=== PATIENT | female | born 1940 | race Caucasian/White ===

== ENCOUNTER 2021-07-12 09:51 | Inpatient (IN) ==
[2021-07-12] MEDS ORDERED: ALBUTEROL/IPRATROPIUM 3 ML NEB RESP TX STA (10:17)
[2021-07-12 10:54] LABS: Basophils % 0.3 % (0.0-0.8); Eosinophils # 0.1 10*3/uL (0.0-0.87); Eosinophils % 0.8 % (0.00-10.9); Hemoglobin 12.5 GM/DL (12.0-16.0); Immature Granulocytes % 0.6 %; Immature Granulocytes Absolute 0.07 #; Lymphocytes # 1.2 10*3/uL (1.4-4.0); Lymphocytes % 10.6 % (21.3-54.2); Mean Corpuscular HGB Conc 31.3 GM/DL (32-36); Mean Corpuscular Volume 97.1 FL (87-102); Mean Platelet Volume 12.2 FL (9.6-12.0); Neutrophils % 77.7 % (38.7-73.9); Platelet Count 205 T/CUMM (130-400); Red Blood Count 4.12 MC/CUMM (3.8-5.5); Red Cell Distribution Width 13.5 % (9.3-17.3)
[2021-07-12 10:58] LABS: PT Patient Result 11.7 SECS (10.5-12.0); Partial Thromboplastin Time 30.7 SECS (23.8-32.1)
[2021-07-12 11:15] LABS: Albumin 2.7 G/DL (3.4-5.0); Bilirubin,Total 0.4 MG/DL (0.20-1.00); Calcium 9.5 MG/DL (8.5-10.1); Osmolality,Calculated 291.8 MOS/KG (273-304); Potassium 3.2 MMOL/L (3.5-5.1); Total Protein 6.2 G/DL (6.4-8.2)
[2021-07-12] MEDS ORDERED: methylPREDNISolone SOD SUC 125 MG/2 ML VIAL IV STA (13:03)
[2021-07-12] MEDS ORDERED: ONDANSETRON 4 MG/2 ML VIAL IV PRN (14:17)
[2021-07-12] MEDS ORDERED: hydrALAZINE 20 MG/1 ML VIAL IV PRN (14:17)
[2021-07-12] MEDS ORDERED: DEXTROSE 10% 250 ML BAG IV PRN (14:17)
[2021-07-12] MEDS ORDERED: ACETAMINOPHEN 325 MG TABLET PO PRN (14:17)
[2021-07-12] MEDS ORDERED: GLUCAGON 1 MG VIAL IM PRN (14:17)
[2021-07-12] MEDS ORDERED: POTASSIUM CHLORIDE 20 MEQ TABLET PO ONE (14:17)
[2021-07-12 15:49] LABS: Risk Ratio 3.97; Thyroid Stimulating Hormone 0.727 uIU/ml (0.358-3.74); VLDL Cholesterol 13.4 MG/DL
[2021-07-12] MEDS: ALBUTEROL/IPRATROPIUM 3 ML NEB RESP TX SCH (20:02)
[2021-07-12] MEDS ORDERED: POTASSIUM CHLORIDE 20 MEQ TABLET PO SCH (21:00)
[2021-07-12] MEDS: FERROUS SULFATE 325 MG TABLET PO SCH (21:20)
[2021-07-12] MEDS: GABAPENTIN 300 MG CAPSULE PO SCH (21:20)
[2021-07-12] MEDS: LEVOFLOXACIN 750 MG TABLET PO SCH (21:20)
[2021-07-12] MEDS: APIXABAN 5 MG TABLET PO SCH (21:20)
[2021-07-12] MEDS: METOPROLOL TARTRATE 50 MG TABLET PO SCH (21:21)
[2021-07-13] MEDS: ALBUTEROL/IPRATROPIUM 3 ML NEB RESP TX SCH ×2 (00:37→07:15)
[2021-07-13 02:55] LABS: Basophils % 0.1 % (0.0-0.8); Hematocrit 37.2 VOL% (35.7-47.0); Hemoglobin 11.8 GM/DL (12.0-16.0); Immature Granulocytes % 0.7 %; Immature Granulocytes Absolute 0.05 #; Lymphocytes # 0.5 10*3/uL (1.4-4.0); Lymphocytes % 7.2 % (21.3-54.2); Mean Corpuscular HGB Conc 31.7 GM/DL (32-36); Mean Corpuscular Volume 97.4 FL (87-102); Mean Platelet Volume 12.5 FL (9.6-12.0); Monocytes % 2.4 % (1.7-12.7); Neutrophils % 89.6 % (38.7-73.9); Platelet Count 193 T/CUMM (130-400); Red Blood Count 3.82 MC/CUMM (3.8-5.5); Red Cell Distribution Width 13.4 % (9.3-17.3); White Blood Count 7.5 T/CUMM (4-12)
[2021-07-13 03:10] LABS: Calcium 8.8 MG/DL (8.5-10.1); Osmolality,Calculated 302.3 MOS/KG (273-304); Potassium 3.4 MMOL/L (3.5-5.1)
[2021-07-13] MEDS ORDERED: FUROSEMIDE 20 MG TABLET PO SCH (08:00)
[2021-07-13] MEDS ORDERED: [UNRECOGNIZED DRUG - OTHER] INH SCH (09:00)
[2021-07-13] MEDS ORDERED: FLUTICASONE PROPIONATE INH SCH (09:00)
[2021-07-13] MEDS: APIXABAN 5 MG TABLET PO SCH ×2 (09:18→20:49)
[2021-07-13] MEDS: GABAPENTIN 300 MG CAPSULE PO SCH ×2 (09:18→20:49)
[2021-07-13] MEDS: FERROUS SULFATE 325 MG TABLET PO SCH ×2 (09:18→20:49)
[2021-07-13] MEDS: PANTOPRAZOLE 40 MG TABLET PO SCH (09:19)
[2021-07-13] MEDS: predniSONE 20 MG TABLET PO SCH (09:19)
[2021-07-13] MEDS: METOPROLOL TARTRATE 50 MG TABLET PO SCH ×2 (09:19→20:49)
[2021-07-13] MEDS: ASPIRIN EC 81 MG TABLET PO SCH (09:19)
[2021-07-13] MEDS: MONTELUKAST 10 MG TABLET PO SCH (09:24)
[2021-07-13] MEDS ORDERED: POTASSIUM CHLORIDE 20 MEQ TABLET PO ONE (11:12)
[2021-07-13] MEDS ORDERED: LEVALBUTEROL 1.25 MG/3 ML NEB RESP TX PRN (11:14)
[2021-07-13] MEDS: LEVOTHYROXINE 50 MCG TABLET PO SCH (11:34)
[2021-07-13] MEDS: FUROSEMIDE 40 MG/4 ML VIAL IV SCH (16:59)
[2021-07-13] MEDS: POTASSIUM CHLORIDE 20 MEQ TABLET PO SCH (20:49)
[2021-07-14] MEDS: LEVOTHYROXINE 50 MCG TABLET PO SCH ×2 (05:23→06:06)
[2021-07-14] MEDS ORDERED: FLUTICASONE 110 MCG/PUFF INHALER 12 GM INH SCH (09:00)
[2021-07-14] MEDS: ASPIRIN EC 81 MG TABLET PO SCH (09:48)
[2021-07-14] MEDS: GABAPENTIN 300 MG CAPSULE PO SCH ×2 (09:49→21:18)
[2021-07-14] MEDS: APIXABAN 5 MG TABLET PO SCH ×2 (09:49→21:18)
[2021-07-14] MEDS: PANTOPRAZOLE 40 MG TABLET PO SCH (09:49)
[2021-07-14] MEDS: FERROUS SULFATE 325 MG TABLET PO SCH ×2 (09:49→21:20)
[2021-07-14] MEDS: POTASSIUM CHLORIDE 20 MEQ TABLET PO SCH ×2 (09:49→21:18)
[2021-07-14] MEDS: METOPROLOL TARTRATE 50 MG TABLET PO SCH ×2 (09:49→21:19)
[2021-07-14] MEDS: predniSONE 20 MG TABLET PO SCH (09:49)
[2021-07-14] MEDS: MONTELUKAST 10 MG TABLET PO SCH (09:49)
[2021-07-14] MEDS: FUROSEMIDE 40 MG/4 ML VIAL IV SCH ×2 (09:50→15:08)
[2021-07-14] MEDS ORDERED: ALBUTEROL 2.5 MG/3 ML NEB RESP TX PRN (10:00)
[2021-07-14] MEDS: POLYETHYLENE GLYCOL POWDER 17 GM PACK PO SCH (11:53)
[2021-07-14] MEDS ORDERED: POTASSIUM CHLORIDE 20 MEQ TABLET PO ONE (15:00)
[2021-07-14] MEDS: ALBUTEROL 2.5 MG/3 ML NEB RESP TX SCH ×2 (15:32→20:02)
[2021-07-14] MEDS ORDERED: LATANOPROST 0.005% OPH SOLN 2.5 ML BOTTLE BOTH EYES SCH (21:00)
[2021-07-14] MEDS ORDERED: DOCUSATE SODIUM 100 MG CAPSULE PO SCH (21:00)
[2021-07-14] MEDS: LEVOFLOXACIN 750 MG TABLET PO SCH (21:18)
[2021-07-15] MEDS: LEVOTHYROXINE 50 MCG TABLET PO SCH (05:33)
[2021-07-15] MEDS: ALBUTEROL 2.5 MG/3 ML NEB RESP TX SCH (07:26)
[2021-07-15 07:59] VITALS: BP 135/62
[2021-07-15 08:16] LABS: Basophils % 0.2 % (0.0-0.8); Eosinophils % 0.4 % (0.00-10.9); Hemoglobin 13.1 GM/DL (12.0-16.0); Immature Granulocytes % 1.5 %; Immature Granulocytes Absolute 0.13 #; Lymphocytes # 1.9 10*3/uL (1.4-4.0); Lymphocytes % 21.8 % (21.3-54.2); Mean Corpuscular HGB Conc 31.2 GM/DL (32-36); Mean Corpuscular Volume 98.1 FL (87-102); Mean Platelet Volume 11.7 FL (9.6-12.0); Monocytes % 7.5 % (1.7-12.7); Neutrophils % 68.6 % (38.7-73.9); Platelet Count 254 T/CUMM (130-400); Red Blood Count 4.28 MC/CUMM (3.8-5.5); Red Cell Distribution Width 13.7 % (9.3-17.3); White Blood Count 8.5 T/CUMM (4-12)
[2021-07-15 08:34] LABS: Calcium 9.4 MG/DL (8.5-10.1); Osmolality,Calculated 298.3 MOS/KG (273-304); Potassium 3.8 MMOL/L (3.5-5.1)
[2021-07-15] MEDS: APIXABAN 5 MG TABLET PO SCH (10:03)
[2021-07-15] MEDS: PANTOPRAZOLE 40 MG TABLET PO SCH (10:03)
[2021-07-15] MEDS: MONTELUKAST 10 MG TABLET PO SCH (10:03)
[2021-07-15] MEDS: POLYETHYLENE GLYCOL POWDER 17 GM PACK PO SCH (10:03)
[2021-07-15] MEDS: ASPIRIN EC 81 MG TABLET PO SCH (10:03)
[2021-07-15] MEDS: METOPROLOL TARTRATE 50 MG TABLET PO SCH (10:03)
[2021-07-15] MEDS: predniSONE 20 MG TABLET PO SCH (10:04)
[2021-07-15] MEDS: FERROUS SULFATE 325 MG TABLET PO SCH (10:04)
[2021-07-15] MEDS: FUROSEMIDE 40 MG/4 ML VIAL IV SCH (10:04)
[2021-07-15] MEDS: GABAPENTIN 300 MG CAPSULE PO SCH (10:04)
[2021-07-15] MEDS: POTASSIUM CHLORIDE 20 MEQ TABLET PO SCH (10:04)
== END 2021-07-15 10:48 | DRG 291 ==
LOC: EDUNIT# → EDBD → N.EDINP 09:51 → N.ED 09:51 → N.5E 07-13 07:05 → SUATTDRO 07-13 11:20
PROVIDERS: ADMIT Internal Medicine; ATTEND Internal Medicine

== ENCOUNTER 2021-08-05 03:30 | Inpatient (IN) ==
[2021-08-05 04:09] LABS: PT Patient Result 11.5 SECS (10.5-12.0); Partial Thromboplastin Time 28.6 SECS (23.8-32.1)
[2021-08-05 04:11] LABS: Alanine Aminotransferase 18 U/L (13-56); Albumin 2.8 G/DL (3.4-5.0); Alkaline Phosphatase 105 U/L (45-117); Aspartate Amino Transferase 21 U/L (0-37); Bilirubin,Total < 0.39 MG/DL (0.20-1.00); Blood Urea Nitrogen 66 MG/DL (7-18); Calcium 9.3 MG/DL (8.5-10.1); Carbon Dioxide 37 MMOL/L (21-32); Estimated Glom Filtration Rate 19 ML/MIN; Glucose 89 MG/DL (74-106); Osmolality,Calculated 290.8 MOS/KG (273-304); Potassium 3.7 MMOL/L (3.5-5.1); Sodium 137 MMOL/L (136-145); Total Protein 6.7 G/DL (6.4-8.2)
[2021-08-05 04:14] LABS: Basophils % 0.5 % (0.0-0.8); Eosinophils # 0.1 10*3/uL (0.0-0.87); Eosinophils % 2.1 % (0.00-10.9); Hematocrit 38.9 VOL% (35.7-47.0); Hemoglobin 12.5 GM/DL (12.0-16.0); Immature Granulocytes % 0.5 %; Immature Granulocytes Absolute 0.03 #; Lymphocytes # 1.5 10*3/uL (1.4-4.0); Lymphocytes % 24.5 % (21.3-54.2); Mean Corpuscular HGB Conc 32.1 GM/DL (32-36); Mean Corpuscular Volume 95.3 FL (87-102); Mean Platelet Volume 11.9 FL (9.6-12.0); Monocytes % 11.3 % (1.7-12.7); Neutrophils % 61.1 % (38.7-73.9); Platelet Count 235 T/CUMM (130-400); Red Blood Count 4.08 MC/CUMM (3.8-5.5); Red Cell Distribution Width 13.8 % (9.3-17.3); White Blood Count 6.3 T/CUMM (4-12)
[2021-08-05] MEDS ORDERED: SODIUM CHLORIDE 0.9% 500 ML IV STA (04:33)
[2021-08-05] MEDS ORDERED: LEVOFLOXACIN INJ 500 MG/100 ML PREMIX IV ONE (04:38)
[2021-08-05] MEDS ORDERED: DEXTROSE 10% 250 ML BAG IV PRN (05:15)
[2021-08-05] MEDS ORDERED: GLUCAGON 1 MG VIAL IM PRN (05:15)
[2021-08-05] MEDS ORDERED: ACETAMINOPHEN 325 MG TABLET PO PRN (05:22)
[2021-08-05] MEDS ORDERED: hydrALAZINE 20 MG/1 ML VIAL IV PRN (05:22)
[2021-08-05] MEDS ORDERED: ONDANSETRON 4 MG/2 ML VIAL IV PRN (05:22)
[2021-08-05] MEDS ORDERED: MORPHINE 4 MG/1 ML VIAL IV PRN (05:22)
[2021-08-05] MEDS ORDERED: DOXYCYCLINE HYCLATE INJ 100 MG in SODIUM CHLORIDE 0.9% 100 ML IV SCH (06:00)
[2021-08-05] MEDS: methylPREDNISolone SOD SUC 40 MG/1 ML VIAL IV SCH ×2 (06:29→17:32)
[2021-08-05] MEDS ORDERED: ALBUTEROL/IPRATROPIUM 3 ML NEB RESP TX SCH (07:00)
[2021-08-05] MEDS: PANTOPRAZOLE 40 MG TABLET PO SCH (09:00)
[2021-08-05] MEDS ORDERED: SULFAMETH/TRIMETH INJ 200 MG in DEXTROSE 5% 250 ML IV SCH (09:00)
[2021-08-05] MEDS ORDERED: ALBUTEROL 2.5 MG/3 ML NEB RESP TX PRN (09:57)
[2021-08-05] MEDS ORDERED: ALBUTEROL 2.5 MG/3 ML NEB RESP TX ONE (10:01)
[2021-08-05] MEDS ORDERED: LEVOFLOXACIN INJ 500 MG/100 ML PREMIX IV SCH (11:00)
[2021-08-05] MEDS: SODIUM CHLORIDE 0.9% 1,000 ML IV SCH (12:20)
[2021-08-05] MEDS: HEPARIN 5,000 UNIT/1 ML VIAL SUBCUT SCH (18:21)
[2021-08-05] MEDS: ALBUTEROL 2.5 MG/3 ML NEB RESP TX SCH ×2 (19:10→22:57)
[2021-08-05] MEDS: MIRTAZAPINE 15 MG TABLET PO SCH (21:28)
[2021-08-05] MEDS: MONTELUKAST 10 MG TABLET PO SCH (21:28)
[2021-08-05] MEDS: DOCUSATE SODIUM 100 MG CAPSULE PO SCH (21:28)
[2021-08-05] MEDS: LATANOPROST 0.005% OPH SOLN 2.5 ML BOTTLE BOTH EYES SCH (21:34)
[2021-08-05] MEDS: BENZONATATE 100 MG CAPSULE PO PRN (23:24)
[2021-08-06] MEDS: ALBUTEROL 2.5 MG/3 ML NEB RESP TX SCH ×6 (02:35→21:02)
[2021-08-06 06:03] LABS: Eosinophils % 0.2 % (0.00-10.9); Hematocrit 34.2 VOL% (35.7-47.0); Hemoglobin 10.8 GM/DL (12.0-16.0); Immature Granulocytes % 0.5 %; Immature Granulocytes Absolute 0.02 #; Lymphocytes # 0.7 10*3/uL (1.4-4.0); Lymphocytes % 16.5 % (21.3-54.2); Mean Corpuscular HGB Conc 31.6 GM/DL (32-36); Mean Corpuscular Volume 96.6 FL (87-102); Mean Platelet Volume 12.3 FL (9.6-12.0); Monocytes % 5.9 % (1.7-12.7); Neutrophils % 76.9 % (38.7-73.9); Platelet Count 205 T/CUMM (130-400); Red Blood Count 3.54 MC/CUMM (3.8-5.5); Red Cell Distribution Width 13.5 % (9.3-17.3); White Blood Count 4.3 T/CUMM (4-12)
[2021-08-06 06:04] LABS: Calcium 8.4 MG/DL (8.5-10.1); Osmolality,Calculated 288.2 MOS/KG (273-304); Potassium 4.3 MMOL/L (3.5-5.1)
[2021-08-06] MEDS: HEPARIN 5,000 UNIT/1 ML VIAL SUBCUT SCH (07:00)
[2021-08-06] MEDS: methylPREDNISolone SOD SUC 40 MG/1 ML VIAL IV SCH ×2 (07:01→17:56)
[2021-08-06] MEDS: LEVOTHYROXINE 50 MCG TABLET PO SCH (07:06)
[2021-08-06] MEDS ORDERED: MIRTAZAPINE 15 MG TABLET PO SCH (09:00)
[2021-08-06] MEDS: PANTOPRAZOLE 40 MG TABLET PO SCH (09:14)
[2021-08-06] MEDS: FLUTICASONE 50 MCG NASAL SPRAY 16 GM BOTTLE BOTH NARES SCH (10:16)
[2021-08-06] MEDS: POLYETHYLENE GLYCOL POWDER 17 GM PACK PO SCH (11:50)
[2021-08-06] MEDS: SODIUM CHLORIDE 0.9% 1,000 ML IV SCH (11:50)
[2021-08-06] MEDS ORDERED: INFLUENZA VIRUS VACCINE 0.5 ML SYRINGE IM ONE (14:59)
[2021-08-06] MEDS: APIXABAN 2.5 MG TABLET PO SCH (21:38)
[2021-08-06] MEDS: METOPROLOL TARTRATE 25 MG TABLET PO SCH (21:38)
[2021-08-06] MEDS: MONTELUKAST 10 MG TABLET PO SCH (21:38)
[2021-08-06] MEDS: DOCUSATE SODIUM 100 MG CAPSULE PO SCH (21:38)
[2021-08-06] MEDS: MIRTAZAPINE 15 MG TABLET PO SCH (21:39)
[2021-08-06] MEDS: LATANOPROST 0.005% OPH SOLN 2.5 ML BOTTLE BOTH EYES SCH (21:42)
[2021-08-07] MEDS: LEVOTHYROXINE 50 MCG TABLET PO SCH (05:38)
[2021-08-07] MEDS: methylPREDNISolone SOD SUC 40 MG/1 ML VIAL IV SCH ×2 (05:38→17:22)
[2021-08-07] MEDS: LEVOFLOXACIN INJ 250 MG/50 ML PREMIX IV SCH (05:39)
[2021-08-07] MEDS: ALBUTEROL 2.5 MG/3 ML NEB RESP TX SCH ×5 (07:31→21:24)
[2021-08-07] MEDS ORDERED: POLYETHYLENE GLYCOL POWDER 17 GM PACK PO SCH (09:00)
[2021-08-07] MEDS: APIXABAN 2.5 MG TABLET PO SCH ×2 (09:38→20:25)
[2021-08-07] MEDS: METOPROLOL TARTRATE 25 MG TABLET PO SCH ×2 (09:38→20:25)
[2021-08-07] MEDS: PANTOPRAZOLE 40 MG TABLET PO SCH (09:38)
[2021-08-07] MEDS: POLYETHYLENE GLYCOL POWDER 17 GM PACK PO SCH (09:39)
[2021-08-07] MEDS: ASPIRIN EC 81 MG TABLET PO SCH (13:07)
[2021-08-07] MEDS: FLUTICASONE 50 MCG NASAL SPRAY 16 GM BOTTLE BOTH NARES SCH (13:20)
[2021-08-07] MEDS: SODIUM CHLORIDE 0.9% 1,000 ML IV SCH (13:21)
[2021-08-07] MEDS: GABAPENTIN 100 MG CAPSULE PO SCH ×2 (13:33→20:25)
[2021-08-07] MEDS: MONTELUKAST 10 MG TABLET PO SCH (20:25)
[2021-08-07] MEDS: DOCUSATE SODIUM 100 MG CAPSULE PO SCH (20:25)
[2021-08-07] MEDS: LATANOPROST 0.005% OPH SOLN 2.5 ML BOTTLE BOTH EYES SCH (20:26)
[2021-08-08] MEDS: ALBUTEROL 2.5 MG/3 ML NEB RESP TX SCH ×7 (00:19→23:20)
[2021-08-08 04:56] LABS: Hematocrit 34.4 VOL% (35.7-47.0); Hemoglobin 10.6 GM/DL (12.0-16.0); Immature Granulocytes % 0.5 %; Immature Granulocytes Absolute 0.03 #; Lymphocytes # 0.9 10*3/uL (1.4-4.0); Lymphocytes % 14.7 % (21.3-54.2); Mean Corpuscular HGB Conc 30.8 GM/DL (32-36); Mean Platelet Volume 11.3 FL (9.6-12.0); Monocytes % 7.8 % (1.7-12.7); Platelet Count 227 T/CUMM (130-400); Red Blood Count 3.51 MC/CUMM (3.8-5.5); Red Cell Distribution Width 14.3 % (9.3-17.3); White Blood Count 5.9 T/CUMM (4-12)
[2021-08-08 05:20] LABS: Calcium 8.6 MG/DL (8.5-10.1); Osmolality,Calculated 298.4 MOS/KG (273-304); Potassium 3.6 MMOL/L (3.5-5.1)
[2021-08-08] MEDS: methylPREDNISolone SOD SUC 40 MG/1 ML VIAL IV SCH (05:36)
[2021-08-08] MEDS: LEVOTHYROXINE 50 MCG TABLET PO SCH (05:36)
[2021-08-08] MEDS: PANTOPRAZOLE 40 MG TABLET PO SCH (09:21)
[2021-08-08] MEDS: APIXABAN 2.5 MG TABLET PO SCH ×2 (09:21→21:30)
[2021-08-08] MEDS: GABAPENTIN 100 MG CAPSULE PO SCH ×2 (09:21→21:29)
[2021-08-08] MEDS: ASPIRIN EC 81 MG TABLET PO SCH (09:21)
[2021-08-08] MEDS: POLYETHYLENE GLYCOL POWDER 17 GM PACK PO SCH (09:21)
[2021-08-08] MEDS: METOPROLOL TARTRATE 25 MG TABLET PO SCH (09:21)
[2021-08-08] MEDS: BENZONATATE 100 MG CAPSULE PO PRN (09:25)
[2021-08-08] MEDS: FLUTICASONE 50 MCG NASAL SPRAY 16 GM BOTTLE BOTH NARES SCH (10:47)
[2021-08-08] MEDS: guaiFENesin/DM ER 600-30 MG TABLET PO SCH ×2 (15:13→21:29)
[2021-08-08] MEDS: DILTIAZEM 30 MG TABLET PO SCH ×2 (15:13→21:29)
[2021-08-08] MEDS: BUDESONIDE/FORMOTEROL 160-4.5 INHALER 6 GM INH SCH (21:28)
[2021-08-08] MEDS: MONTELUKAST 10 MG TABLET PO SCH (21:29)
[2021-08-08] MEDS: DOCUSATE SODIUM 100 MG CAPSULE PO SCH (21:29)
[2021-08-08] MEDS: MIRTAZAPINE 15 MG TABLET PO SCH (21:29)
[2021-08-08] MEDS: LATANOPROST 0.005% OPH SOLN 2.5 ML BOTTLE BOTH EYES SCH (21:30)
[2021-08-09] MEDS: ALBUTEROL 2.5 MG/3 ML NEB RESP TX SCH ×6 (03:30→19:18)
[2021-08-09] MEDS: LEVOFLOXACIN INJ 250 MG/50 ML PREMIX IV SCH (05:44)
[2021-08-09] MEDS: methylPREDNISolone SOD SUC 40 MG/1 ML VIAL IV SCH ×2 (05:45→17:15)
[2021-08-09] MEDS: LEVOTHYROXINE 50 MCG TABLET PO SCH (05:45)
[2021-08-09 06:17] LABS: Basophils % 0.3 % (0.0-0.8); Eosinophils # 0.1 10*3/uL (0.0-0.87); Hemoglobin 11.5 GM/DL (12.0-16.0); Immature Granulocytes % 0.9 %; Immature Granulocytes Absolute 0.05 #; Lymphocytes # 1.4 10*3/uL (1.4-4.0); Lymphocytes % 23.5 % (21.3-54.2); Mean Corpuscular HGB Conc 30.3 GM/DL (32-36); Mean Corpuscular Volume 100.3 FL (87-102); Mean Platelet Volume 12.3 FL (9.6-12.0); Monocytes % 12.8 % (1.7-12.7); Neutrophils % 61.5 % (38.7-73.9); Platelet Count 200 T/CUMM (130-400); Red Blood Count 3.79 MC/CUMM (3.8-5.5); Red Cell Distribution Width 14.7 % (9.3-17.3); White Blood Count 5.9 T/CUMM (4-12)
[2021-08-09 06:34] LABS: Potassium 3.3 MMOL/L (3.5-5.1)
[2021-08-09 06:44] LABS: Free T4 (Free Thyroxine) 1.05 NG/DL (0.76-1.46)
[2021-08-09] MEDS ORDERED: POTASSIUM CHLORIDE 20 MEQ TABLET PO ONE (08:00)
[2021-08-09] MEDS: GABAPENTIN 100 MG CAPSULE PO SCH ×2 (09:57→21:02)
[2021-08-09] MEDS: ASPIRIN EC 81 MG TABLET PO SCH (09:57)
[2021-08-09] MEDS: guaiFENesin/DM ER 600-30 MG TABLET PO SCH ×2 (09:57→21:02)
[2021-08-09] MEDS: MONTELUKAST 10 MG TABLET PO SCH ×2 (09:58→21:01)
[2021-08-09] MEDS: APIXABAN 2.5 MG TABLET PO SCH ×2 (09:58→21:02)
[2021-08-09] MEDS: DILTIAZEM 30 MG TABLET PO SCH ×3 (09:58→21:01)
[2021-08-09] MEDS: POLYETHYLENE GLYCOL POWDER 17 GM PACK PO SCH (09:58)
[2021-08-09] MEDS: PANTOPRAZOLE 40 MG TABLET PO SCH (09:58)
[2021-08-09] MEDS: FLUTICASONE 50 MCG NASAL SPRAY 16 GM BOTTLE BOTH NARES SCH (09:59)
[2021-08-09] MEDS: BUDESONIDE/FORMOTEROL 160-4.5 INHALER 6 GM INH SCH ×2 (09:59→21:04)
[2021-08-09] MEDS: MIRTAZAPINE 15 MG TABLET PO SCH (21:01)
[2021-08-09] MEDS: DOCUSATE SODIUM 100 MG CAPSULE PO SCH (21:02)
[2021-08-09] MEDS: LATANOPROST 0.005% OPH SOLN 2.5 ML BOTTLE BOTH EYES SCH (21:05)
[2021-08-10] MEDS: methylPREDNISolone SOD SUC 40 MG/1 ML VIAL IV SCH (05:30)
[2021-08-10] MEDS: LEVOTHYROXINE 50 MCG TABLET PO SCH (05:31)
[2021-08-10] MEDS: ALBUTEROL 2.5 MG/3 ML NEB RESP TX SCH ×3 (06:31→11:13)
[2021-08-10] MEDS: FLUTICASONE 50 MCG NASAL SPRAY 16 GM BOTTLE BOTH NARES SCH (08:53)
[2021-08-10] MEDS: DILTIAZEM 30 MG TABLET PO SCH (08:53)
[2021-08-10] MEDS: ASPIRIN EC 81 MG TABLET PO SCH (08:53)
[2021-08-10] MEDS: GABAPENTIN 100 MG CAPSULE PO SCH (08:53)
[2021-08-10] MEDS: APIXABAN 2.5 MG TABLET PO SCH (08:53)
[2021-08-10] MEDS: PANTOPRAZOLE 40 MG TABLET PO SCH (08:54)
[2021-08-10] MEDS: MONTELUKAST 10 MG TABLET PO SCH (08:54)
[2021-08-10] MEDS: guaiFENesin/DM ER 600-30 MG TABLET PO SCH (08:54)
[2021-08-10] MEDS: POLYETHYLENE GLYCOL POWDER 17 GM PACK PO SCH (08:55)
[2021-08-10] MEDS: BUDESONIDE/FORMOTEROL 160-4.5 INHALER 6 GM INH SCH (08:55)
[2021-08-10] MEDS ORDERED: POTASSIUM CHLORIDE 20 MEQ TABLET PO ONE (09:00)
[2021-08-10 11:27] VITALS: BP 131/51
== END 2021-08-10 14:14 | DRG 178 ==
LOC: N.ED 03:30 → N.EDINP 05:15 → N.3E 15:13
PROVIDERS: ADMIT Hospitalist; ATTEND Hospitalist

== ENCOUNTER 2022-03-03 12:54 | Inpatient (IN) ==
[2022-03-03] MEDS ORDERED: DILTIAZEM 25 MG/5 ML VIAL IV STA (13:25)
[2022-03-03] MEDS: DILTIAZEM INJ 100 MG in SODIUM CHLORIDE 0.9% 100 ML IV SCH (13:38)
[2022-03-03 13:39] LABS: Basophils % 0.4 % (0.0-0.8); Eosinophils # 0.1 10*3/uL (0.0-0.87); Eosinophils % 0.8 % (0.00-10.9); Hematocrit 42.9 VOL% (35.7-47.0); Hemoglobin 13.4 GM/DL (12.0-16.0); Immature Granulocytes % 0.5 %; Immature Granulocytes Absolute 0.04 #; Lymphocytes # 0.4 10*3/uL (1.4-4.0); Mean Corpuscular HGB Conc 31.2 GM/DL (32-36); Mean Platelet Volume 11.3 FL (9.6-12.0); Monocytes # 0.7 10*3/uL (0.11-0.8); Monocytes % 9.3 % (1.7-12.7); Platelet Count 243 T/CUMM (130-400); Red Blood Count 4.47 MC/CUMM (3.8-5.5); Red Cell Distribution Width 14.9 % (9.3-17.3); White Blood Count 7.9 T/CUMM (4-12)
[2022-03-03 13:51] LABS: Partial Thromboplastin Time 25.6 SECS (23.7-32.9)
[2022-03-03 14:10] LABS: Albumin 3.5 G/DL (3.4-5.0); Bilirubin,Total 0.4 MG/DL (0.20-1.00); Calcium 10.2 MG/DL (8.5-10.1); Potassium 4.7 MMOL/L (3.5-5.1); Thyroid Stimulating Hormone 0.74 uIU/ml (0.358-3.74); Total Protein 7.2 G/DL (6.4-8.2)
[2022-03-03 14:28] LABS: Barbiturates Screen,Urine Negative (Negative); Benzodiazepines Screen,Urine Negative (Negative); Cannabinoid Screen,Urine Negative (Negative); Opiate Screen,Urine Negative (Negative); Phencyclidine Screen,Urine Negative (Negative)
[2022-03-03] MEDS ORDERED: LEVOFLOXACIN INJ 750 MG/150 ML PREMIX IV STA (16:37)
[2022-03-03] MEDS ORDERED: ONDANSETRON 4 MG/2 ML VIAL IV PRN (17:15)
[2022-03-03] MEDS ORDERED: ACETAMINOPHEN 325 MG TABLET PO PRN (17:15)
[2022-03-03] MEDS ORDERED: traMADol 50 MG TABLET PO PRN (17:37)
[2022-03-03] MEDS ORDERED: NON-FORMULARY MEDICATION (Menthol [Biofreeze (Menthol)] 4 % Gel) TOP PRN (17:37)
[2022-03-03] MEDS ORDERED: FUROSEMIDE 40 MG/4 ML VIAL IV STA (17:42)
[2022-03-03 18:33] LABS: Bacteria,Urine Occasional /HPF (Few); Mucus,Urine Occasional /LPF (Occasional); RBC,Urine 1 /HPF (0-4); Squamous Epithelial Cell,Urine Occasional /HPF (0-10)
[2022-03-03 18:34] LABS: Bilirubin,Urine Negative (Negative); Blood, Urine Trace mg/dL (Negative); Glucose,Urine (UA) Negative (Negative); Ketones,Urine Negative (Negative); Nitrite,Urine Negative (Negative); Protein,Urine Negative (Negative); Urine Appearance Clear (Clear); Urine Color Yellow (Yellow); Urine Specific Gravity < 1.005 (1.001-1.035); Urine Urobilinogen 0.2 eU/dL (<2.0); Urine pH 5.5 (4.5-8.0)
[2022-03-03] MEDS: BUDESONIDE/FORMOTEROL 160-4.5 INHALER 6 GM INH SCH (21:06)
[2022-03-03] MEDS: MINERAL OIL/PETROLATUM OPH OINT 3.5 GM TUBE BOTH EYES SCH (21:06)
[2022-03-03] MEDS: MIRTAZAPINE 15 MG TABLET PO SCH (21:06)
[2022-03-03] MEDS: ALBUTEROL/IPRATROPIUM 3 ML NEB RESP TX SCH (21:07)
[2022-03-03] MEDS: LATANOPROST 0.005% OPH SOLN 2.5 ML BOTTLE BOTH EYES SCH (21:07)
[2022-03-03] MEDS: APIXABAN 2.5 MG TABLET PO SCH (21:09)
[2022-03-03] MEDS: DOCUSATE SODIUM 100 MG CAPSULE PO SCH (21:09)
[2022-03-03] MEDS: FERROUS SULFATE 325 MG TABLET PO SCH (21:09)
[2022-03-03] MEDS: DILTIAZEM 30 MG TABLET PO SCH (21:09)
[2022-03-03] MEDS: POTASSIUM CHLORIDE 20 MEQ TABLET PO SCH (21:10)
[2022-03-03] MEDS: GABAPENTIN 100 MG CAPSULE PO SCH (21:10)
[2022-03-03] MEDS: guaiFENesin/DM ER 600-30 MG TABLET PO SCH (21:10)
[2022-03-04] MEDS: ALBUTEROL/IPRATROPIUM 3 ML NEB RESP TX SCH ×4 (02:09→18:22)
[2022-03-04] MEDS: DILTIAZEM INJ 100 MG in SODIUM CHLORIDE 0.9% 100 ML IV SCH (04:00)
[2022-03-04 04:56] LABS: Basophils % 0.5 % (0.0-0.8); Eosinophils # 0.1 10*3/uL (0.0-0.87); Eosinophils % 1.8 % (0.00-10.9); Hematocrit 37.3 VOL% (35.7-47.0); Hemoglobin 11.8 GM/DL (12.0-16.0); Immature Granulocytes % 0.7 %; Immature Granulocytes Absolute 0.04 #; Lymphocytes % 18.8 % (21.3-54.2); Mean Corpuscular HGB Conc 31.6 GM/DL (32-36); Mean Corpuscular Volume 96.1 FL (87-102); Mean Platelet Volume 11.4 FL (9.6-12.0); Neutrophils % 59.2 % (38.7-73.9); Platelet Count 212 T/CUMM (130-400); Red Blood Count 3.88 MC/CUMM (3.8-5.5); Red Cell Distribution Width 14.8 % (9.3-17.3); White Blood Count 5.5 T/CUMM (4-12)
[2022-03-04 05:05] LABS: INR 1.1
[2022-03-04 05:25] LABS: Calcium 9.7 MG/DL (8.5-10.1); Potassium 3.7 MMOL/L (3.5-5.1); Risk Ratio 2.49; VLDL Cholesterol 8.6 MG/DL
[2022-03-04 05:32] LABS: Lymphocytes 18 % (20-55); Total Cells Counted 100
[2022-03-04 05:33] LABS: Microcytosis Slight; Target Cells Slight
[2022-03-04] MEDS: LEVOTHYROXINE 50 MCG TABLET PO SCH (07:22)
[2022-03-04] MEDS: MULTIVITAMIN (CENTRUM) TABLET PO SCH (08:36)
[2022-03-04] MEDS: FERROUS SULFATE 325 MG TABLET PO SCH ×2 (08:36→20:54)
[2022-03-04] MEDS: DOCUSATE SODIUM 100 MG CAPSULE PO SCH ×2 (08:36→20:54)
[2022-03-04] MEDS: MONTELUKAST 10 MG TABLET PO SCH (08:36)
[2022-03-04] MEDS: APIXABAN 2.5 MG TABLET PO SCH ×2 (08:36→20:54)
[2022-03-04] MEDS: POTASSIUM CHLORIDE 20 MEQ TABLET PO SCH ×2 (08:37→20:54)
[2022-03-04] MEDS: GABAPENTIN 100 MG CAPSULE PO SCH ×2 (08:37→20:54)
[2022-03-04] MEDS: PANTOPRAZOLE 40 MG TABLET PO SCH (08:37)
[2022-03-04] MEDS: DILTIAZEM 30 MG TABLET PO SCH (08:37)
[2022-03-04] MEDS: guaiFENesin/DM ER 600-30 MG TABLET PO SCH ×2 (08:37→20:54)
[2022-03-04] MEDS: ASPIRIN EC 81 MG TABLET PO SCH (08:37)
[2022-03-04] MEDS: FUROSEMIDE 40 MG TABLET PO SCH (08:37)
[2022-03-04] MEDS: BUDESONIDE/FORMOTEROL 160-4.5 INHALER 6 GM INH SCH ×2 (08:38→20:53)
[2022-03-04] MEDS ORDERED: [UNRECOGNIZED DRUG - MIXTURE] INH SCH (09:00)
[2022-03-04] MEDS ORDERED: NON-FORMULARY MEDICATION (Cranberry Extract-Vitamin C 250-60 mg Capsule) PO SCH (09:00)
[2022-03-04] MEDS: POLYETHYLENE GLYCOL POWDER 17 GM PACK PO SCH (09:16)
[2022-03-04] MEDS: MEROPENEM 500 MG in SODIUM CHLORIDE 0.9% 100 ML IV SCH ×2 (10:40→17:06)
[2022-03-04] MEDS ORDERED: DILTIAZEM CD 120 MG CAPSULE PO SCH (11:00)
[2022-03-04] MEDS: VANCOMYCIN INJ 1,500 MG in SODIUM CHLORIDE 0.9% 500 ML IV SCH (11:12)
[2022-03-04] MEDS: MINERAL OIL/PETROLATUM OPH OINT 3.5 GM TUBE BOTH EYES SCH (20:53)
[2022-03-04] MEDS: LATANOPROST 0.005% OPH SOLN 2.5 ML BOTTLE BOTH EYES SCH (20:53)
[2022-03-04] MEDS: MIRTAZAPINE 15 MG TABLET PO SCH (20:54)
[2022-03-05 04:45] LABS: Basophils % 0.3 % (0.0-0.8); Eosinophils # 0.1 10*3/uL (0.0-0.87); Eosinophils % 1.6 % (0.00-10.9); Hematocrit 38.8 VOL% (35.7-47.0); Immature Granulocytes % 0.7 %; Immature Granulocytes Absolute 0.04 #; Lymphocytes % 17.1 % (21.3-54.2); Mean Corpuscular HGB Conc 30.9 GM/DL (32-36); Mean Corpuscular Volume 96.8 FL (87-102); Monocytes % 17.8 % (1.7-12.7); Neutrophils % 62.5 % (38.7-73.9); Platelet Count 212 T/CUMM (130-400); Red Blood Count 4.01 MC/CUMM (3.8-5.5); Red Cell Distribution Width 14.8 % (9.3-17.3); White Blood Count 5.7 T/CUMM (4-12)
[2022-03-05 05:04] LABS: Calcium 9.8 MG/DL (8.5-10.1); Osmolality,Calculated 293.8 MOS/KG (273-304); Potassium 3.4 MMOL/L (3.5-5.1)
[2022-03-05 05:20] LABS: Eosinophils 1 % (0-10); Lymphocytes 14 % (20-55); Platelet Estimate Adequate; Total Cells Counted 100
[2022-03-05] MEDS: LEVOTHYROXINE 50 MCG TABLET PO SCH (06:52)
[2022-03-05] MEDS: MEROPENEM 500 MG in SODIUM CHLORIDE 0.9% 100 ML IV SCH ×4 (06:52→16:22)
[2022-03-05] MEDS ORDERED: POTASSIUM CHLORIDE 20 MEQ TABLET PO ONE (07:38)
[2022-03-05] MEDS: guaiFENesin/DM ER 600-30 MG TABLET PO SCH ×2 (08:16→22:14)
[2022-03-05] MEDS: BUDESONIDE/FORMOTEROL 160-4.5 INHALER 6 GM INH SCH ×2 (08:16→22:16)
[2022-03-05] MEDS: MULTIVITAMIN (CENTRUM) TABLET PO SCH (08:16)
[2022-03-05] MEDS: FUROSEMIDE 40 MG TABLET PO SCH (08:17)
[2022-03-05] MEDS: ASPIRIN EC 81 MG TABLET PO SCH (08:17)
[2022-03-05] MEDS: APIXABAN 2.5 MG TABLET PO SCH ×2 (08:17→22:14)
[2022-03-05] MEDS: PANTOPRAZOLE 40 MG TABLET PO SCH (08:17)
[2022-03-05] MEDS: FERROUS SULFATE 325 MG TABLET PO SCH ×2 (08:17→22:14)
[2022-03-05] MEDS: POTASSIUM CHLORIDE 20 MEQ TABLET PO SCH ×2 (08:17→22:14)
[2022-03-05] MEDS: MONTELUKAST 10 MG TABLET PO SCH (08:17)
[2022-03-05] MEDS: GABAPENTIN 100 MG CAPSULE PO SCH ×2 (08:18→22:14)
[2022-03-05] MEDS: DOCUSATE SODIUM 100 MG CAPSULE PO SCH ×2 (08:18→22:14)
[2022-03-05] MEDS: POLYETHYLENE GLYCOL POWDER 17 GM PACK PO SCH (08:24)
[2022-03-05] MEDS ORDERED: DILTIAZEM CD 180 MG CAPSULE PO SCH (09:00)
[2022-03-05] MEDS: CALCIUM CARBONATE CHEW 500 MG TABLET PO PRN ×2 (09:07→23:18)
[2022-03-05] MEDS: VANCOMYCIN INJ 1,500 MG in SODIUM CHLORIDE 0.9% 500 ML IV SCH (10:11)
[2022-03-05] MEDS: ALBUTEROL/IPRATROPIUM 3 ML NEB RESP TX SCH ×4 (15:33→19:02)
[2022-03-05] MEDS ORDERED: LEVOFLOXACIN INJ 750 MG/150 ML PREMIX IV SCH (18:00)
[2022-03-05] MEDS: MINERAL OIL/PETROLATUM OPH OINT 3.5 GM TUBE BOTH EYES SCH (22:15)
[2022-03-05] MEDS: LATANOPROST 0.005% OPH SOLN 2.5 ML BOTTLE BOTH EYES SCH (22:16)
[2022-03-06] MEDS: ALBUTEROL/IPRATROPIUM 3 ML NEB RESP TX SCH ×4 (01:15→19:02)
[2022-03-06] MEDS: MEROPENEM 500 MG in SODIUM CHLORIDE 0.9% 100 ML IV SCH ×3 (02:42→17:10)
[2022-03-06 05:03] LABS: Basophils % 0.4 % (0.0-0.8); Eosinophils # 0.3 10*3/uL (0.0-0.87); Eosinophils % 4.7 % (0.00-10.9); Hematocrit 37.8 VOL% (35.7-47.0); Hemoglobin 11.7 GM/DL (12.0-16.0); Immature Granulocytes % 0.7 %; Immature Granulocytes Absolute 0.04 #; Lymphocytes % 17.5 % (21.3-54.2); Mean Corpuscular Volume 97.9 FL (87-102); Mean Platelet Volume 11.5 FL (9.6-12.0); Monocytes # 0.9 10*3/uL (0.11-0.8); Neutrophils % 60.7 % (38.7-73.9); Platelet Count 179 T/CUMM (130-400); Red Blood Count 3.86 MC/CUMM (3.8-5.5); White Blood Count 5.6 T/CUMM (4-12)
[2022-03-06 05:32] LABS: Calcium 9.4 MG/DL (8.5-10.1); Potassium 3.7 MMOL/L (3.5-5.1)
[2022-03-06 05:54] LABS: Band Neutrophils 1 % (0-10); Eosinophils 1 % (0-10); Lymphocytes 25 % (20-55); Platelet Estimate Adequate; Total Cells Counted 100
[2022-03-06 05:55] LABS: Hypochromia Slight; Microcytosis Slight
[2022-03-06] MEDS: LEVOTHYROXINE 50 MCG TABLET PO SCH (06:40)
[2022-03-06] MEDS: POLYETHYLENE GLYCOL POWDER 17 GM PACK PO SCH (09:07)
[2022-03-06] MEDS: DOCUSATE SODIUM 100 MG CAPSULE PO SCH ×2 (09:07→21:47)
[2022-03-06] MEDS: MONTELUKAST 10 MG TABLET PO SCH (09:10)
[2022-03-06] MEDS: guaiFENesin/DM ER 600-30 MG TABLET PO SCH ×2 (09:10→21:46)
[2022-03-06] MEDS: FUROSEMIDE 40 MG TABLET PO SCH (09:10)
[2022-03-06] MEDS: APIXABAN 2.5 MG TABLET PO SCH ×2 (09:10→21:46)
[2022-03-06] MEDS: POTASSIUM CHLORIDE 20 MEQ TABLET PO SCH ×2 (09:10→21:47)
[2022-03-06] MEDS: GABAPENTIN 100 MG CAPSULE PO SCH ×2 (09:11→21:47)
[2022-03-06] MEDS: FERROUS SULFATE 325 MG TABLET PO SCH ×2 (09:12→21:48)
[2022-03-06] MEDS: MULTIVITAMIN (CENTRUM) TABLET PO SCH (09:12)
[2022-03-06] MEDS: ASPIRIN EC 81 MG TABLET PO SCH (09:14)
[2022-03-06] MEDS: PANTOPRAZOLE 40 MG TABLET PO SCH (09:14)
[2022-03-06] MEDS: DILTIAZEM CD 240 MG CAPSULE PO SCH (09:15)
[2022-03-06] MEDS: VANCOMYCIN INJ 1,500 MG in SODIUM CHLORIDE 0.9% 500 ML IV SCH (09:17)
[2022-03-06] MEDS: BUDESONIDE/FORMOTEROL 160-4.5 INHALER 6 GM INH SCH ×2 (09:30→21:49)
[2022-03-06] MEDS: ASCORBIC ACID 500 MG TABLET PO SCH ×2 (11:52→21:48)
[2022-03-06] MEDS: MIRTAZAPINE 15 MG TABLET PO SCH (21:46)
[2022-03-06] MEDS: MINERAL OIL/PETROLATUM OPH OINT 3.5 GM TUBE BOTH EYES SCH (21:49)
[2022-03-06] MEDS: LATANOPROST 0.005% OPH SOLN 2.5 ML BOTTLE BOTH EYES SCH (21:49)
[2022-03-06] MEDS: CALCIUM CARBONATE CHEW 500 MG TABLET PO PRN (22:47)
[2022-03-07] MEDS: ALBUTEROL/IPRATROPIUM 3 ML NEB RESP TX SCH ×4 (00:22→19:22)
[2022-03-07] MEDS: MEROPENEM 500 MG in SODIUM CHLORIDE 0.9% 100 ML IV SCH ×3 (01:16→17:59)
[2022-03-07] MEDS: CALCIUM CARBONATE CHEW 500 MG TABLET PO PRN ×3 (04:32→21:29)
[2022-03-07 05:05] LABS: Basophils % 0.5 % (0.0-0.8); Eosinophils # 0.5 10*3/uL (0.0-0.87); Eosinophils % 8.4 % (0.00-10.9); Hematocrit 37.6 VOL% (35.7-47.0); Hemoglobin 11.8 GM/DL (12.0-16.0); Immature Granulocytes % 0.7 %; Immature Granulocytes Absolute 0.04 #; Lymphocytes % 17.3 % (21.3-54.2); Mean Corpuscular HGB Conc 31.4 GM/DL (32-36); Mean Corpuscular Volume 97.4 FL (87-102); Mean Platelet Volume 11.4 FL (9.6-12.0); Monocytes # 0.8 10*3/uL (0.11-0.8); Neutrophils % 59.1 % (38.7-73.9); Platelet Count 177 T/CUMM (130-400); Red Blood Count 3.86 MC/CUMM (3.8-5.5); Red Cell Distribution Width 14.9 % (9.3-17.3); White Blood Count 5.9 T/CUMM (4-12)
[2022-03-07 05:27] LABS: Calcium 9.9 MG/DL (8.5-10.1); Potassium 4.1 MMOL/L (3.5-5.1)
[2022-03-07] MEDS: LEVOTHYROXINE 50 MCG TABLET PO SCH (05:48)
[2022-03-07] MEDS: POLYETHYLENE GLYCOL POWDER 17 GM PACK PO SCH (08:42)
[2022-03-07] MEDS: ASPIRIN EC 81 MG TABLET PO SCH (08:43)
[2022-03-07] MEDS: DILTIAZEM CD 240 MG CAPSULE PO SCH (08:43)
[2022-03-07] MEDS: POTASSIUM CHLORIDE 20 MEQ TABLET PO SCH ×2 (08:43→20:58)
[2022-03-07] MEDS: FERROUS SULFATE 325 MG TABLET PO SCH ×2 (08:44→20:58)
[2022-03-07] MEDS: DOCUSATE SODIUM 100 MG CAPSULE PO SCH ×2 (08:44→20:59)
[2022-03-07] MEDS: ASCORBIC ACID 500 MG TABLET PO SCH ×2 (08:44→20:58)
[2022-03-07] MEDS: PANTOPRAZOLE 40 MG TABLET PO SCH (08:44)
[2022-03-07] MEDS: APIXABAN 2.5 MG TABLET PO SCH ×2 (08:45→20:58)
[2022-03-07] MEDS: GABAPENTIN 100 MG CAPSULE PO SCH ×2 (08:45→20:58)
[2022-03-07] MEDS: MONTELUKAST 10 MG TABLET PO SCH (08:45)
[2022-03-07] MEDS: MULTIVITAMIN (CENTRUM) TABLET PO SCH (08:45)
[2022-03-07] MEDS: BUDESONIDE/FORMOTEROL 160-4.5 INHALER 6 GM INH SCH ×2 (08:46→21:03)
[2022-03-07] MEDS: FUROSEMIDE 40 MG TABLET PO SCH (08:52)
[2022-03-07] MEDS: guaiFENesin/DM ER 600-30 MG TABLET PO SCH ×2 (08:52→20:58)
[2022-03-07] MEDS: VANCOMYCIN INJ 1,500 MG in SODIUM CHLORIDE 0.9% 500 ML IV SCH (10:38)
[2022-03-07] MEDS ORDERED: cefTRIAXone 1,000 MG in SODIUM CHLORIDE 0.9% 100 ML IV SCH (12:00)
[2022-03-07] MEDS: methylPREDNISolone SOD SUC 40 MG/1 ML VIAL IV SCH ×2 (12:40→20:59)
[2022-03-07 12:51] LABS: Mycoplasma pneumoniae Ab Inter SEE COMMENTS; Mycoplasma pneumoniae Ab, IgG Positive (Negative); Mycoplasma pneumoniae Ab, IgM Negative (Negative)
[2022-03-07] MEDS: MIRTAZAPINE 15 MG TABLET PO SCH (20:58)
[2022-03-07] MEDS: MINERAL OIL/PETROLATUM OPH OINT 3.5 GM TUBE BOTH EYES SCH (21:03)
[2022-03-07] MEDS: LATANOPROST 0.005% OPH SOLN 2.5 ML BOTTLE BOTH EYES SCH (21:03)
[2022-03-08] MEDS: MEROPENEM 500 MG in SODIUM CHLORIDE 0.9% 100 ML IV SCH ×3 (00:11→12:40)
[2022-03-08] MEDS: ALBUTEROL/IPRATROPIUM 3 ML NEB RESP TX SCH ×2 (00:28→07:08)
[2022-03-08] MEDS: methylPREDNISolone SOD SUC 40 MG/1 ML VIAL IV SCH (05:42)
[2022-03-08] MEDS: LEVOTHYROXINE 50 MCG TABLET PO SCH (05:43)
[2022-03-08 06:04] LABS: Hematocrit 41.5 VOL% (35.7-47.0); Hemoglobin 12.9 GM/DL (12.0-16.0); Immature Granulocytes % 0.6 %; Immature Granulocytes Absolute 0.02 #; Lymphocytes # 0.5 10*3/uL (1.4-4.0); Lymphocytes % 12.8 % (21.3-54.2); Mean Corpuscular HGB Conc 31.1 GM/DL (32-36); Mean Corpuscular Volume 96.3 FL (87-102); Mean Platelet Volume 11.7 FL (9.6-12.0); Monocytes # 0.1 10*3/uL (0.11-0.8); Monocytes % 2.5 % (1.7-12.7); Neutrophils % 84.1 % (38.7-73.9); Platelet Count 185 T/CUMM (130-400); Red Blood Count 4.31 MC/CUMM (3.8-5.5); Red Cell Distribution Width 14.5 % (9.3-17.3); White Blood Count 3.6 T/CUMM (4-12)
[2022-03-08 06:19] LABS: Calcium 10.5 MG/DL (8.5-10.1); Potassium 4.6 MMOL/L (3.5-5.1)
[2022-03-08] MEDS: APIXABAN 2.5 MG TABLET PO SCH (08:36)
[2022-03-08] MEDS: guaiFENesin/DM ER 600-30 MG TABLET PO SCH (08:37)
[2022-03-08] MEDS: ASPIRIN EC 81 MG TABLET PO SCH (08:37)
[2022-03-08] MEDS: FERROUS SULFATE 325 MG TABLET PO SCH (08:37)
[2022-03-08] MEDS: MONTELUKAST 10 MG TABLET PO SCH (08:38)
[2022-03-08] MEDS: PANTOPRAZOLE 40 MG TABLET PO SCH (08:38)
[2022-03-08] MEDS: POTASSIUM CHLORIDE 20 MEQ TABLET PO SCH (08:38)
[2022-03-08] MEDS: DOCUSATE SODIUM 100 MG CAPSULE PO SCH (08:39)
[2022-03-08] MEDS: MULTIVITAMIN (CENTRUM) TABLET PO SCH (08:39)
[2022-03-08] MEDS: FUROSEMIDE 40 MG TABLET PO SCH (08:39)
[2022-03-08] MEDS: GABAPENTIN 100 MG CAPSULE PO SCH (08:40)
[2022-03-08] MEDS: ASCORBIC ACID 500 MG TABLET PO SCH (08:40)
[2022-03-08] MEDS: DILTIAZEM CD 240 MG CAPSULE PO SCH (08:44)
[2022-03-08] MEDS: BUDESONIDE/FORMOTEROL 160-4.5 INHALER 6 GM INH SCH (08:45)
[2022-03-08] MEDS: POLYETHYLENE GLYCOL POWDER 17 GM PACK PO SCH (10:50)
[2022-03-08 11:50] VITALS: BP 126/60
== END 2022-03-08 14:02 | DRG 871 ==
LOC: EDUNIT# → EDBD → N.ED 12:54 → SUATTDRO 17:15 → N.EDINP 17:15 → N.TELES 23:01 → N.TELEN 03-07 17:35
PROVIDERS: ADMIT Internal Medicine; ATTEND Internal Medicine

== ENCOUNTER 2022-03-20 09:42 | Inpatient (IN) ==
[2022-03-20] MEDS ORDERED: methylPREDNISolone SOD SUC 125 MG/2 ML VIAL IV STA (10:05)
[2022-03-20] MEDS ORDERED: ALBUTEROL NEB SOLN 5 MG/ML 20 ML/BOTTLE CONT NEB SCH (10:30)
[2022-03-20 10:32] LABS: Arterial Base Excess iSTAT 9 MMOL/L (-2.5-2.5); Arterial O2 Saturation iSTAT 87 % (95-100); Arterial PCO2 iSTAT 57 MM HG (35-48); Arterial PO2 iSTAT 55 MM HG (80-95); Arterial Total CO2 iSTAT 38 MMO/L (23-27); Arterial pH iSTAT 7.405 (7.35-7.45)
[2022-03-20 11:09] LABS: Basophils % 0.2 % (0.0-0.8); Eosinophils # 0.3 10*3/uL (0.0-0.87); Eosinophils % 3.3 % (0.00-10.9); Hematocrit 35.6 VOL% (35.7-47.0); Hemoglobin 11.3 GM/DL (12.0-16.0); Immature Granulocytes % 0.6 %; Immature Granulocytes Absolute 0.06 #; Lymphocytes # 0.8 10*3/uL (1.4-4.0); Lymphocytes % 8.5 % (21.3-54.2); Mean Corpuscular HGB Conc 31.7 GM/DL (32-36); Mean Corpuscular Volume 95.4 FL (87-102); Mean Platelet Volume 11.7 FL (9.6-12.0); Monocytes # 1.3 10*3/uL (0.11-0.8); Monocytes % 13.1 % (1.7-12.7); Neutrophils % 74.3 % (38.7-73.9); Platelet Count 183 T/CUMM (130-400); Red Blood Count 3.73 MC/CUMM (3.8-5.5); Red Cell Distribution Width 14.3 % (9.3-17.3); White Blood Count 9.8 T/CUMM (4-12)
[2022-03-20 11:22] LABS: Albumin 2.7 G/DL (3.4-5.0); Bilirubin,Total 0.5 MG/DL (0.20-1.00); Calcium 9.8 MG/DL (8.5-10.1); Osmolality,Calculated 284.8 MOS/KG (273-304); Potassium 3.1 MMOL/L (3.5-5.1); Total Protein 6.1 G/DL (6.4-8.2)
[2022-03-20] MEDS ORDERED: LEVOFLOXACIN INJ 500 MG/100 ML PREMIX IV STA (11:49)
[2022-03-20] MEDS ORDERED: ONDANSETRON 4 MG/2 ML VIAL IV PRN (12:15)
[2022-03-20] MEDS ORDERED: DOCUSATE SODIUM 100 MG CAPSULE PO PRN (12:15)
[2022-03-20] MEDS ORDERED: ACETAMINOPHEN 325 MG TABLET PO PRN (12:15)
[2022-03-20] MEDS ORDERED: BUDESONIDE 0.5 MG/2 ML NEB RESP TX STA (12:33)
[2022-03-20] MEDS ORDERED: POTASSIUM BICARB EFFERVESCENT 20 MEQ TAB.EFF PO ONE (12:43)
[2022-03-20] MEDS ORDERED: SODIUM CHLORIDE 0.9% 1,000 ML IV SCH (13:00)
[2022-03-20] MEDS ORDERED: tiZANidine 4 MG TABLET PO PRN (13:00)
[2022-03-20] MEDS: ALBUTEROL/IPRATROPIUM 3 ML NEB RESP TX SCH ×2 (13:32→19:10)
[2022-03-20] MEDS: MEROPENEM 500 MG in SODIUM CHLORIDE 0.9% 100 ML IV SCH ×2 (14:02→20:51)
[2022-03-20] MEDS ORDERED: INFLUENZA VIRUS VACCINE 0.5 ML SYRINGE IM ONE (15:25)
[2022-03-20] MEDS: SODIUM CHLOR 0.9% KCL 20 MEQ 20 MEQ/1,000 ML BAG IV SCH (15:37)
[2022-03-20] MEDS: DILTIAZEM CD 240 MG CAPSULE PO SCH (15:38)
[2022-03-20] MEDS ORDERED: FUROSEMIDE 40 MG/4 ML VIAL IV SCH (16:00)
[2022-03-20] MEDS: methylPREDNISolone SOD SUC 40 MG/1 ML VIAL IV SCH ×2 (17:02→22:05)
[2022-03-20] MEDS: VANCOMYCIN INJ 1,500 MG in SODIUM CHLORIDE 0.9% 500 ML IV SCH (17:13)
[2022-03-20 19:52] LABS: Bilirubin,Urine Negative (Negative); Blood, Urine Small mg/dL (Negative); Glucose,Urine (UA) Negative (Negative); Hyaline Casts,Urine 1 /LPF (0-3); Ketones,Urine Negative (Negative); Mucus,Urine Occasional /LPF (Occasional); Nitrite,Urine Negative (Negative); Protein,Urine Negative (Negative); RBC,Urine 4 /HPF (0-4); Squamous Epithelial Cell,Urine Occasional /HPF (0-10); Urine Appearance CLEAR (Clear); Urine Color Straw (Yellow); Urine Specific Gravity 1.006 (1.001-1.035); Urine Urobilinogen < 2.0 eU/dL (<2.0)
[2022-03-20] MEDS: MIRTAZAPINE 15 MG TABLET PO SCH (20:52)
[2022-03-20] MEDS: guaiFENesin/DM ER 600-30 MG TABLET PO SCH (20:52)
[2022-03-20] MEDS: GABAPENTIN 300 MG CAPSULE PO SCH (20:52)
[2022-03-20] MEDS: APIXABAN 2.5 MG TABLET PO SCH (20:52)
[2022-03-20] MEDS: MONTELUKAST 10 MG TABLET PO SCH (20:52)
[2022-03-20] MEDS: FERROUS SULFATE 325 MG TABLET PO SCH (20:53)
[2022-03-21] MEDS: ALBUTEROL/IPRATROPIUM 3 ML NEB RESP TX SCH ×4 (01:52→19:26)
[2022-03-21] MEDS: methylPREDNISolone SOD SUC 40 MG/1 ML VIAL IV SCH ×4 (03:18→21:19)
[2022-03-21] MEDS: MEROPENEM 500 MG in SODIUM CHLORIDE 0.9% 100 ML IV SCH ×3 (04:39→21:17)
[2022-03-21] MEDS: SODIUM CHLOR 0.9% KCL 20 MEQ 20 MEQ/1,000 ML BAG IV SCH (04:39)
[2022-03-21] MEDS: LEVOTHYROXINE 50 MCG TABLET PO SCH (05:16)
[2022-03-21 06:12] LABS: Basophils % 0.2 % (0.0-0.8); Hematocrit 33.5 VOL% (35.7-47.0); Hemoglobin 10.7 GM/DL (12.0-16.0); Immature Granulocytes % 0.6 %; Immature Granulocytes Absolute 0.04 #; Lymphocytes # 0.4 10*3/uL (1.4-4.0); Lymphocytes % 5.7 % (21.3-54.2); Mean Corpuscular HGB Conc 31.9 GM/DL (32-36); Mean Corpuscular Volume 95.4 FL (87-102); Mean Platelet Volume 12.2 FL (9.6-12.0); Monocytes # 0.1 10*3/uL (0.11-0.8); Monocytes % 1.6 % (1.7-12.7); Neutrophils % 91.9 % (38.7-73.9); Platelet Count 175 T/CUMM (130-400); Red Blood Count 3.51 MC/CUMM (3.8-5.5); Red Cell Distribution Width 14.2 % (9.3-17.3); White Blood Count 6.4 T/CUMM (4-12)
[2022-03-21 06:43] LABS: Lymphocytes 5 % (20-55); Platelet Estimate Adequate; Total Cells Counted 100
[2022-03-21 06:52] LABS: Alanine Aminotransferase 14 U/L (13-56); Albumin 2.3 G/DL (3.4-5.0); Alkaline Phosphatase 60 U/L (45-117); Aspartate Amino Transferase 11 U/L (0-37); Bilirubin,Total < 0.39 MG/DL (0.20-1.00); Blood Urea Nitrogen 46 MG/DL (7-18); Calcium 9.2 MG/DL (8.5-10.1); Carbon Dioxide 33 MMOL/L (21-32); Chloride 100 MMOL/L (98-107); Glucose 144 MG/DL (74-106); Osmolality,Calculated 293.4 MOS/KG (273-304); Potassium 3.4 MMOL/L (3.5-5.1); Sodium 140 MMOL/L (136-145); Total Protein 5.4 G/DL (6.4-8.2)
[2022-03-21 06:53] LABS: Calcium 9.5 MG/DL (8.5-10.1); Osmolality,Calculated 293.4 MOS/KG (273-304); Potassium 3.2 MMOL/L (3.5-5.1)
[2022-03-21] MEDS: DILTIAZEM CD 240 MG CAPSULE PO SCH (08:28)
[2022-03-21] MEDS: FERROUS SULFATE 325 MG TABLET PO SCH ×2 (08:28→21:17)
[2022-03-21] MEDS: APIXABAN 2.5 MG TABLET PO SCH ×2 (08:28→21:17)
[2022-03-21] MEDS: PANTOPRAZOLE 40 MG TABLET PO SCH (08:28)
[2022-03-21] MEDS: ASPIRIN EC 81 MG TABLET PO SCH (08:28)
[2022-03-21] MEDS: guaiFENesin/DM ER 600-30 MG TABLET PO SCH ×2 (08:28→21:17)
[2022-03-21] MEDS: POLYETHYLENE GLYCOL POWDER 17 GM PACK PO SCH (09:48)
[2022-03-21] MEDS: [UNRECOGNIZED DRUG - MIXTURE] INH SCH (09:48)
[2022-03-21] MEDS: MONTELUKAST 10 MG TABLET PO SCH (21:17)
[2022-03-21] MEDS: MIRTAZAPINE 15 MG TABLET PO SCH (21:17)
[2022-03-21] MEDS: GABAPENTIN 300 MG CAPSULE PO SCH (21:17)
[2022-03-22] MEDS: ALBUTEROL/IPRATROPIUM 3 ML NEB RESP TX SCH ×4 (00:28→19:12)
[2022-03-22] MEDS: methylPREDNISolone SOD SUC 40 MG/1 ML VIAL IV SCH ×2 (03:45→17:25)
[2022-03-22] MEDS: SODIUM CHLOR 0.9% KCL 20 MEQ 20 MEQ/1,000 ML BAG IV SCH ×2 (03:47→12:46)
[2022-03-22] MEDS: MEROPENEM 500 MG in SODIUM CHLORIDE 0.9% 100 ML IV SCH ×2 (04:18→17:24)
[2022-03-22] MEDS: VANCOMYCIN INJ 1,500 MG in SODIUM CHLORIDE 0.9% 500 ML IV SCH (04:51)
[2022-03-22] MEDS: LEVOTHYROXINE 50 MCG TABLET PO SCH (05:08)
[2022-03-22 05:17] LABS: Basophils % 0.1 % (0.0-0.8); Hematocrit 34.6 VOL% (35.7-47.0); Hemoglobin 11.1 GM/DL (12.0-16.0); Immature Granulocytes % 0.6 %; Immature Granulocytes Absolute 0.08 #; Lymphocytes # 0.4 10*3/uL (1.4-4.0); Lymphocytes % 3.3 % (21.3-54.2); Mean Corpuscular HGB Conc 32.1 GM/DL (32-36); Mean Corpuscular Volume 95.3 FL (87-102); Mean Platelet Volume 11.9 FL (9.6-12.0); Monocytes # 0.2 10*3/uL (0.11-0.8); Monocytes % 1.4 % (1.7-12.7); Neutrophils % 94.6 % (38.7-73.9); Platelet Count 216 T/CUMM (130-400); Red Blood Count 3.63 MC/CUMM (3.8-5.5); Red Cell Distribution Width 14.3 % (9.3-17.3); White Blood Count 12.6 T/CUMM (4-12)
[2022-03-22 05:38] LABS: Calcium 8.9 MG/DL (8.5-10.1); Osmolality,Calculated 292.5 MOS/KG (273-304); Potassium 3.5 MMOL/L (3.5-5.1)
[2022-03-22 05:40] LABS: Hypochromia Slight; Lymphocytes 2 % (20-55); Platelet Estimate Adequate; Total Cells Counted 100
[2022-03-22 05:41] LABS: Albumin 2.5 G/DL (3.4-5.0); Bilirubin,Total 0.4 MG/DL (0.20-1.00); Calcium 9.2 MG/DL (8.5-10.1); Osmolality,Calculated 289.7 MOS/KG (273-304); Potassium 3.6 MMOL/L (3.5-5.1); Total Protein 5.6 G/DL (6.4-8.2)
[2022-03-22] MEDS: guaiFENesin/DM ER 600-30 MG TABLET PO SCH ×2 (09:46→20:17)
[2022-03-22] MEDS: APIXABAN 2.5 MG TABLET PO SCH ×2 (09:46→20:17)
[2022-03-22] MEDS: FERROUS SULFATE 325 MG TABLET PO SCH ×2 (09:46→20:16)
[2022-03-22] MEDS: DILTIAZEM CD 240 MG CAPSULE PO SCH (09:46)
[2022-03-22] MEDS: ASPIRIN EC 81 MG TABLET PO SCH (09:47)
[2022-03-22] MEDS: [UNRECOGNIZED DRUG - MIXTURE] INH SCH (09:47)
[2022-03-22] MEDS: POLYETHYLENE GLYCOL POWDER 17 GM PACK PO SCH (09:47)
[2022-03-22] MEDS: PANTOPRAZOLE 40 MG TABLET PO SCH (09:47)
[2022-03-22 15:23] LABS: % Iron Saturation 30.4 % (18-50)
[2022-03-22 15:31] LABS: Folate 10.17 NG/ML (5.38-24.0)
[2022-03-22] MEDS: POTASSIUM CHLORIDE 20 MEQ TABLET PO SCH (17:24)
[2022-03-22] MEDS: CARBOXYMETHYLCELLULOSE 1% OPH SOLN BOTH EYES SCH ×2 (17:25→21:54)
[2022-03-22] MEDS: MONTELUKAST 10 MG TABLET PO SCH (20:16)
[2022-03-22] MEDS: GABAPENTIN 300 MG CAPSULE PO SCH (20:16)
[2022-03-22] MEDS: ALUMINUM/MAGNES/SIMETH MAX STR 30 ML UDCUP PO PRN (20:16)
[2022-03-22] MEDS: MIRTAZAPINE 15 MG TABLET PO SCH (20:17)
[2022-03-22] MEDS: BUDESONIDE/FORMOTEROL 160-4.5 INHALER 6 GM INH SCH (20:19)
[2022-03-22] MEDS: LATANOPROST 0.005% OPH SOLN 2.5 ML BOTTLE BOTH EYES SCH (20:20)
[2022-03-23] MEDS: ALBUTEROL/IPRATROPIUM 3 ML NEB RESP TX SCH ×4 (00:29→19:35)
[2022-03-23 03:56] LABS: Arterial Base Excess iSTAT 5 MMOL/L (-2.5-2.5); Arterial Bicarbonate iSTAT 30.7 MMOL/L (20-26); Arterial O2 Saturation iSTAT 94 % (95-100); Arterial PCO2 iSTAT 49 MM HG (35-48); Arterial PO2 iSTAT 72 MM HG (80-95); Arterial Total CO2 iSTAT 32 MMO/L (23-27); Arterial pH iSTAT 7.403 (7.35-7.45)
[2022-03-23] MEDS: MEROPENEM 500 MG in SODIUM CHLORIDE 0.9% 100 ML IV SCH ×2 (04:12→16:11)
[2022-03-23] MEDS: methylPREDNISolone SOD SUC 40 MG/1 ML VIAL IV SCH ×3 (04:13→17:57)
[2022-03-23] MEDS: LEVOTHYROXINE 50 MCG TABLET PO SCH (05:03)
[2022-03-23 05:33] LABS: Basophils % 0.1 % (0.0-0.8); Hematocrit 35.5 VOL% (35.7-47.0); Hemoglobin 11.1 GM/DL (12.0-16.0); Immature Granulocytes % 0.8 %; Lymphocytes # 0.4 10*3/uL (1.4-4.0); Lymphocytes % 3.2 % (21.3-54.2); Mean Corpuscular HGB Conc 31.3 GM/DL (32-36); Mean Corpuscular Volume 95.2 FL (87-102); Mean Platelet Volume 11.8 FL (9.6-12.0); Monocytes # 0.2 10*3/uL (0.11-0.8); Monocytes % 1.8 % (1.7-12.7); Neutrophils % 94.1 % (38.7-73.9); Platelet Count 219 T/CUMM (130-400); Red Blood Count 3.73 MC/CUMM (3.8-5.5); Red Cell Distribution Width 14.5 % (9.3-17.3); White Blood Count 12.4 T/CUMM (4-12)
[2022-03-23 05:50] LABS: Calcium 9.1 MG/DL (8.5-10.1); Osmolality,Calculated 296.5 MOS/KG (273-304); Potassium 3.7 MMOL/L (3.5-5.1)
[2022-03-23 05:55] LABS: Alanine Aminotransferase 12 U/L (13-56); Albumin 2.4 G/DL (3.4-5.0); Alkaline Phosphatase 47 U/L (45-117); Aspartate Amino Transferase 12 U/L (0-37); Bilirubin,Total < 0.39 MG/DL (0.20-1.00); Blood Urea Nitrogen 63 MG/DL (7-18); Calcium 9.2 MG/DL (8.5-10.1); Carbon Dioxide 27 MMOL/L (21-32); Chloride 103 MMOL/L (98-107); Glucose 127 MG/DL (74-106); Osmolality,Calculated 294.7 MOS/KG (273-304); Potassium 3.7 MMOL/L (3.5-5.1); Sodium 138 MMOL/L (136-145)
[2022-03-23 05:58] LABS: Band Neutrophils 1 % (0-10); Hypochromia Slight; Lymphocytes 2 % (20-55); Total Cells Counted 100
[2022-03-23 05:59] LABS: Microcytosis Slight; Ovalocytes Slight
[2022-03-23 06:00] LABS: Platelet Estimate Normal
[2022-03-23] MEDS ORDERED: CYANOCOBALAMIN 1000 MCG/1 ML VIAL IM SCH (09:00)
[2022-03-23] MEDS: POTASSIUM CHLORIDE 20 MEQ TABLET PO SCH ×2 (09:11→16:12)
[2022-03-23] MEDS: FERROUS SULFATE 325 MG TABLET PO SCH ×2 (09:11→21:52)
[2022-03-23] MEDS: APIXABAN 2.5 MG TABLET PO SCH ×2 (09:12→21:52)
[2022-03-23] MEDS: ASPIRIN EC 81 MG TABLET PO SCH (09:12)
[2022-03-23] MEDS: guaiFENesin/DM ER 600-30 MG TABLET PO SCH ×2 (09:12→21:52)
[2022-03-23] MEDS: PANTOPRAZOLE 40 MG TABLET PO SCH (09:12)
[2022-03-23] MEDS: DILTIAZEM CD 240 MG CAPSULE PO SCH (09:12)
[2022-03-23] MEDS: [UNRECOGNIZED DRUG - MIXTURE] INH SCH (09:13)
[2022-03-23] MEDS: BUDESONIDE/FORMOTEROL 160-4.5 INHALER 6 GM INH SCH ×2 (09:13→21:51)
[2022-03-23] MEDS: POLYETHYLENE GLYCOL POWDER 17 GM PACK PO SCH (09:13)
[2022-03-23] MEDS: CARBOXYMETHYLCELLULOSE 1% OPH SOLN BOTH EYES SCH ×3 (09:19→21:53)
[2022-03-23] MEDS: SUCRALFATE 1 GM/10 ML UDCUP PO SCH (16:12)
[2022-03-23] MEDS: ALUMINUM/MAGNES/SIMETH MAX STR 30 ML UDCUP PO PRN (17:00)
[2022-03-23] MEDS: SODIUM CHLOR 0.9% KCL 20 MEQ 20 MEQ/1,000 ML BAG IV SCH (17:56)
[2022-03-23] MEDS: LATANOPROST 0.005% OPH SOLN 2.5 ML BOTTLE BOTH EYES SCH (21:50)
[2022-03-23] MEDS: GABAPENTIN 300 MG CAPSULE PO SCH (21:52)
[2022-03-23] MEDS: MONTELUKAST 10 MG TABLET PO SCH (21:52)
[2022-03-24] MEDS: methylPREDNISolone SOD SUC 40 MG/1 ML VIAL IV SCH ×5 (00:47→22:07)
[2022-03-24] MEDS: ALBUTEROL/IPRATROPIUM 3 ML NEB RESP TX SCH ×4 (01:59→19:30)
[2022-03-24] MEDS: MEROPENEM 500 MG in SODIUM CHLORIDE 0.9% 100 ML IV SCH ×2 (05:16→16:30)
[2022-03-24] MEDS: LEVOTHYROXINE 50 MCG TABLET PO SCH (06:29)
[2022-03-24 06:37] LABS: Alanine Aminotransferase 15 U/L (13-56); Albumin 2.5 G/DL (3.4-5.0); Alkaline Phosphatase 52 U/L (45-117); Aspartate Amino Transferase 14 U/L (0-37); Bilirubin,Total < 0.39 MG/DL (0.20-1.00); Blood Urea Nitrogen 66 MG/DL (7-18); Calcium 9.3 MG/DL (8.5-10.1); Carbon Dioxide 29 MMOL/L (21-32); Chloride 106 MMOL/L (98-107); Glucose 123 MG/DL (74-106); Osmolality,Calculated 298.4 MOS/KG (273-304); Potassium 4.7 MMOL/L (3.5-5.1); Sodium 140 MMOL/L (136-145); Total Protein 6.1 G/DL (6.4-8.2)
[2022-03-24] MEDS ORDERED: MEPERIDINE 50 MG/1 ML VIAL IM ONE (07:30)
[2022-03-24] MEDS ORDERED: PROMETHAZINE 25 MG/1 ML VIAL IM ONE (07:30)
[2022-03-24] MEDS ORDERED: LIDOCAINE 1% 20 ML VIAL MISC INJ ONE (08:00)
[2022-03-24] MEDS ORDERED: LIDOCAINE 2% VISCOUS 100 ML BOTTLE SWISH/SPIT ONE (08:00)
[2022-03-24] MEDS ORDERED: methylPREDNISolone SOD SUC 40 MG/1 ML VIAL IV SCH (08:00)
[2022-03-24] MEDS ORDERED: LIDOCAINE 2% 20 ML VIAL RESP TX ONE (08:00)
[2022-03-24] MEDS ORDERED: MIDAZOLAM 2 MG/2 ML VIAL IV ONE (08:00)
[2022-03-24] MEDS: SODIUM CHLOR 0.9% KCL 20 MEQ 20 MEQ/1,000 ML BAG IV SCH ×3 (10:09→11:58)
[2022-03-24] MEDS: APIXABAN 2.5 MG TABLET PO SCH ×2 (10:29→21:56)
[2022-03-24] MEDS: ASPIRIN EC 81 MG TABLET PO SCH (10:30)
[2022-03-24] MEDS: POLYETHYLENE GLYCOL POWDER 17 GM PACK PO SCH (10:30)
[2022-03-24] MEDS: FERROUS SULFATE 325 MG TABLET PO SCH ×2 (10:30→21:56)
[2022-03-24] MEDS: PANTOPRAZOLE 40 MG TABLET PO SCH (10:31)
[2022-03-24] MEDS: SUCRALFATE 1 GM/10 ML UDCUP PO SCH ×2 (10:31→16:06)
[2022-03-24] MEDS: DILTIAZEM CD 240 MG CAPSULE PO SCH (10:32)
[2022-03-24] MEDS: POTASSIUM CHLORIDE 20 MEQ TABLET PO SCH ×2 (10:35→16:31)
[2022-03-24] MEDS: guaiFENesin/DM ER 600-30 MG TABLET PO SCH ×2 (10:35→21:56)
[2022-03-24] MEDS: [UNRECOGNIZED DRUG - MIXTURE] INH SCH (10:37)
[2022-03-24] MEDS: BUDESONIDE/FORMOTEROL 160-4.5 INHALER 6 GM INH SCH ×2 (10:37→21:58)
[2022-03-24] MEDS: CARBOXYMETHYLCELLULOSE 1% OPH SOLN BOTH EYES SCH ×3 (10:40→21:58)
[2022-03-24] MEDS: MONTELUKAST 10 MG TABLET PO SCH (21:56)
[2022-03-24] MEDS: GABAPENTIN 300 MG CAPSULE PO SCH (21:56)
[2022-03-24] MEDS: MIRTAZAPINE 15 MG TABLET PO SCH (21:57)
[2022-03-24] MEDS: LATANOPROST 0.005% OPH SOLN 2.5 ML BOTTLE BOTH EYES SCH (21:58)
[2022-03-25] MEDS: ALBUTEROL/IPRATROPIUM 3 ML NEB RESP TX SCH ×4 (01:48→19:33)
[2022-03-25 05:44] LABS: Alanine Aminotransferase 15 U/L (13-56); Albumin 2.2 G/DL (3.4-5.0); Alkaline Phosphatase 44 U/L (45-117); Aspartate Amino Transferase 11 U/L (0-37); Bilirubin,Total < 0.39 MG/DL (0.20-1.00); Blood Urea Nitrogen 69 MG/DL (7-18); Calcium 8.9 MG/DL (8.5-10.1); Carbon Dioxide 27 MMOL/L (21-32); Chloride 109 MMOL/L (98-107); Glucose 127 MG/DL (74-106); Osmolality,Calculated 300.4 MOS/KG (273-304); Sodium 140 MMOL/L (136-145); Total Protein 5.4 G/DL (6.4-8.2)
[2022-03-25 05:47] LABS: Potassium 6.1 MMOL/L (3.5-5.1)
[2022-03-25] MEDS: LEVOTHYROXINE 50 MCG TABLET PO SCH (05:59)
[2022-03-25] MEDS: MEROPENEM 500 MG in SODIUM CHLORIDE 0.9% 100 ML IV SCH ×2 (06:02→17:03)
[2022-03-25] MEDS: methylPREDNISolone SOD SUC 40 MG/1 ML VIAL IV SCH ×4 (07:26→21:22)
[2022-03-25 07:36] LABS: Hematocrit 33.2 VOL% (35.7-47.0); Hemoglobin 10.3 GM/DL (12.0-16.0); Immature Granulocytes % 0.7 %; Immature Granulocytes Absolute 0.06 #; Lymphocytes # 0.2 10*3/uL (1.4-4.0); Lymphocytes % 2.5 % (21.3-54.2); Mean Corpuscular Volume 96.5 FL (87-102); Mean Platelet Volume 11.8 FL (9.6-12.0); Monocytes # 0.1 10*3/uL (0.11-0.8); Monocytes % 1.6 % (1.7-12.7); Neutrophils % 95.2 % (38.7-73.9); Platelet Count 199 T/CUMM (130-400); Red Blood Count 3.44 MC/CUMM (3.8-5.5); Red Cell Distribution Width 14.8 % (9.3-17.3); White Blood Count 8.1 T/CUMM (4-12)
[2022-03-25 07:58] LABS: Lymphocytes 2 % (20-55); Total Cells Counted 100
[2022-03-25 08:00] LABS: Platelet Estimate Normal
[2022-03-25] MEDS: SODIUM CHLOR 0.9% KCL 20 MEQ 20 MEQ/1,000 ML BAG IV SCH (09:08)
[2022-03-25] MEDS: SUCRALFATE 1 GM/10 ML UDCUP PO SCH ×2 (09:13→15:30)
[2022-03-25] MEDS: PANTOPRAZOLE 40 MG TABLET PO SCH (09:14)
[2022-03-25] MEDS: BUDESONIDE/FORMOTEROL 160-4.5 INHALER 6 GM INH SCH ×2 (09:14→21:19)
[2022-03-25] MEDS: ASPIRIN EC 81 MG TABLET PO SCH (09:14)
[2022-03-25] MEDS: DILTIAZEM CD 240 MG CAPSULE PO SCH (09:14)
[2022-03-25] MEDS: POLYETHYLENE GLYCOL POWDER 17 GM PACK PO SCH (09:14)
[2022-03-25] MEDS: guaiFENesin/DM ER 600-30 MG TABLET PO SCH ×2 (09:14→21:17)
[2022-03-25] MEDS: APIXABAN 2.5 MG TABLET PO SCH ×2 (09:14→21:18)
[2022-03-25] MEDS: FERROUS SULFATE 325 MG TABLET PO SCH ×2 (09:14→21:17)
[2022-03-25] MEDS: [UNRECOGNIZED DRUG - MIXTURE] INH SCH (09:15)
[2022-03-25] MEDS: CARBOXYMETHYLCELLULOSE 1% OPH SOLN BOTH EYES SCH ×3 (09:15→21:18)
[2022-03-25] MEDS ORDERED: SODIUM POLYSTYRENE SULFATE 15 GM/60 ML BOTTLE PO STA (14:30)
[2022-03-25] MEDS: GABAPENTIN 300 MG CAPSULE PO SCH (21:17)
[2022-03-25] MEDS: MONTELUKAST 10 MG TABLET PO SCH (21:18)
[2022-03-25] MEDS: MIRTAZAPINE 15 MG TABLET PO SCH (21:19)
[2022-03-25] MEDS: LATANOPROST 0.005% OPH SOLN 2.5 ML BOTTLE BOTH EYES SCH (21:20)
[2022-03-26] MEDS: ALBUTEROL/IPRATROPIUM 3 ML NEB RESP TX SCH ×4 (01:03→19:05)
[2022-03-26] MEDS: methylPREDNISolone SOD SUC 40 MG/1 ML VIAL IV SCH ×4 (04:32→21:31)
[2022-03-26] MEDS: MEROPENEM 500 MG in SODIUM CHLORIDE 0.9% 100 ML IV SCH ×2 (04:33→16:22)
[2022-03-26] MEDS: LEVOTHYROXINE 50 MCG TABLET PO SCH (05:04)
[2022-03-26 05:51] LABS: Basophils % 0.1 % (0.0-0.8); Hematocrit 37.1 VOL% (35.7-47.0); Hemoglobin 11.6 GM/DL (12.0-16.0); Immature Granulocytes % 0.9 %; Immature Granulocytes Absolute 0.09 #; Lymphocytes # 0.3 10*3/uL (1.4-4.0); Lymphocytes % 2.7 % (21.3-54.2); Mean Corpuscular HGB Conc 31.3 GM/DL (32-36); Mean Corpuscular Volume 95.6 FL (87-102); Mean Platelet Volume 11.6 FL (9.6-12.0); Monocytes # 0.2 10*3/uL (0.11-0.8); Monocytes % 1.5 % (1.7-12.7); Neutrophils % 94.8 % (38.7-73.9); Platelet Count 219 T/CUMM (130-400); Red Blood Count 3.88 MC/CUMM (3.8-5.5); Red Cell Distribution Width 15.1 % (9.3-17.3); White Blood Count 9.8 T/CUMM (4-12)
[2022-03-26 06:17] LABS: Lymphocytes 2 % (20-55); Platelet Estimate Adequate; Total Cells Counted 100
[2022-03-26 06:19] LABS: Calcium 9.1 MG/DL (8.5-10.1); Osmolality,Calculated 300.4 MOS/KG (273-304); Potassium 5.3 MMOL/L (3.5-5.1)
[2022-03-26] MEDS: APIXABAN 2.5 MG TABLET PO SCH ×2 (09:18→21:27)
[2022-03-26] MEDS: SUCRALFATE 1 GM/10 ML UDCUP PO SCH ×2 (09:18→16:19)
[2022-03-26] MEDS: guaiFENesin/DM ER 600-30 MG TABLET PO SCH ×2 (09:18→21:27)
[2022-03-26] MEDS: FERROUS SULFATE 325 MG TABLET PO SCH ×2 (09:18→21:27)
[2022-03-26] MEDS: DILTIAZEM CD 240 MG CAPSULE PO SCH (09:18)
[2022-03-26] MEDS: PANTOPRAZOLE 40 MG TABLET PO SCH (09:18)
[2022-03-26] MEDS: FUROSEMIDE 20 MG TABLET PO SCH (09:18)
[2022-03-26] MEDS: POLYETHYLENE GLYCOL POWDER 17 GM PACK PO SCH (09:19)
[2022-03-26] MEDS: ASPIRIN EC 81 MG TABLET PO SCH (09:19)
[2022-03-26] MEDS: BUDESONIDE/FORMOTEROL 160-4.5 INHALER 6 GM INH SCH ×2 (09:25→21:27)
[2022-03-26] MEDS: [UNRECOGNIZED DRUG - MIXTURE] INH SCH (09:31)
[2022-03-26] MEDS: CARBOXYMETHYLCELLULOSE 1% OPH SOLN BOTH EYES SCH ×3 (09:31→21:27)
[2022-03-26] MEDS: GABAPENTIN 300 MG CAPSULE PO SCH (21:27)
[2022-03-26] MEDS: MONTELUKAST 10 MG TABLET PO SCH (21:27)
[2022-03-26] MEDS: LATANOPROST 0.005% OPH SOLN 2.5 ML BOTTLE BOTH EYES SCH (21:34)
[2022-03-27] MEDS: ALBUTEROL/IPRATROPIUM 3 ML NEB RESP TX SCH ×4 (00:08→19:06)
[2022-03-27] MEDS: methylPREDNISolone SOD SUC 40 MG/1 ML VIAL IV SCH ×3 (04:25→21:20)
[2022-03-27] MEDS: MEROPENEM 500 MG in SODIUM CHLORIDE 0.9% 100 ML IV SCH ×2 (04:25→16:56)
[2022-03-27] MEDS: LEVOTHYROXINE 50 MCG TABLET PO SCH (05:16)
[2022-03-27] MEDS: SUCRALFATE 1 GM/10 ML UDCUP PO SCH ×2 (08:38→15:50)
[2022-03-27] MEDS: FERROUS SULFATE 325 MG TABLET PO SCH ×2 (08:38→21:20)
[2022-03-27] MEDS: guaiFENesin/DM ER 600-30 MG TABLET PO SCH ×2 (08:38→21:20)
[2022-03-27] MEDS: PANTOPRAZOLE 40 MG TABLET PO SCH (08:38)
[2022-03-27] MEDS: APIXABAN 2.5 MG TABLET PO SCH ×2 (08:39→21:20)
[2022-03-27] MEDS: ASPIRIN EC 81 MG TABLET PO SCH (08:39)
[2022-03-27] MEDS: FUROSEMIDE 20 MG TABLET PO SCH (08:39)
[2022-03-27] MEDS: [UNRECOGNIZED DRUG - MIXTURE] INH SCH (08:39)
[2022-03-27] MEDS: DILTIAZEM CD 240 MG CAPSULE PO SCH (08:39)
[2022-03-27] MEDS: POLYETHYLENE GLYCOL POWDER 17 GM PACK PO SCH (08:39)
[2022-03-27] MEDS: CARBOXYMETHYLCELLULOSE 1% OPH SOLN BOTH EYES SCH ×3 (08:40→21:20)
[2022-03-27] MEDS: BUDESONIDE/FORMOTEROL 160-4.5 INHALER 6 GM INH SCH ×2 (08:45→21:20)
[2022-03-27] MEDS ORDERED: SODIUM ZIRCONIUM CYCLOSILICATE 10 GM PACK PO ONE (15:01)
[2022-03-27] MEDS: LATANOPROST 0.005% OPH SOLN 2.5 ML BOTTLE BOTH EYES SCH (21:20)
[2022-03-27] MEDS: GABAPENTIN 300 MG CAPSULE PO SCH (21:20)
[2022-03-27] MEDS: MIRTAZAPINE 15 MG TABLET PO SCH (21:20)
[2022-03-27] MEDS: MONTELUKAST 10 MG TABLET PO SCH (21:20)
[2022-03-28] MEDS: ALBUTEROL/IPRATROPIUM 3 ML NEB RESP TX SCH ×2 (00:08→08:00)
[2022-03-28] MEDS: MEROPENEM 500 MG in SODIUM CHLORIDE 0.9% 100 ML IV SCH (05:00)
[2022-03-28] MEDS: LEVOTHYROXINE 50 MCG TABLET PO SCH (05:00)
[2022-03-28 05:34] LABS: Basophils % 0.1 % (0.0-0.8); Hematocrit 37.4 VOL% (35.7-47.0); Hemoglobin 11.8 GM/DL (12.0-16.0); Lymphocytes # 0.2 10*3/uL (1.4-4.0); Lymphocytes % 2.4 % (21.3-54.2); Mean Corpuscular HGB Conc 31.6 GM/DL (32-36); Mean Corpuscular Volume 95.4 FL (87-102); Mean Platelet Volume 11.5 FL (9.6-12.0); Monocytes # 0.2 10*3/uL (0.11-0.8); Monocytes % 2.4 % (1.7-12.7); Neutrophils % 94.1 % (38.7-73.9); Platelet Count 191 T/CUMM (130-400); Red Blood Count 3.92 MC/CUMM (3.8-5.5); Red Cell Distribution Width 15.2 % (9.3-17.3); White Blood Count 9.9 T/CUMM (4-12)
[2022-03-28 05:54] LABS: Calcium 8.9 MG/DL (8.5-10.1); Osmolality,Calculated 307.8 MOS/KG (273-304); Potassium 3.9 MMOL/L (3.5-5.1)
[2022-03-28 05:55] LABS: Hypochromia Slight; Lymphocytes 2 % (20-55); Total Cells Counted 100
[2022-03-28 05:56] LABS: Macrocytosis Slight
[2022-03-28] MEDS: POLYETHYLENE GLYCOL POWDER 17 GM PACK PO SCH (08:55)
[2022-03-28] MEDS: SUCRALFATE 1 GM/10 ML UDCUP PO SCH (08:56)
[2022-03-28] MEDS: DILTIAZEM CD 240 MG CAPSULE PO SCH (08:57)
[2022-03-28] MEDS: ASPIRIN EC 81 MG TABLET PO SCH (08:57)
[2022-03-28] MEDS: APIXABAN 2.5 MG TABLET PO SCH (08:57)
[2022-03-28] MEDS: FERROUS SULFATE 325 MG TABLET PO SCH (08:57)
[2022-03-28] MEDS: guaiFENesin/DM ER 600-30 MG TABLET PO SCH (08:57)
[2022-03-28] MEDS: FUROSEMIDE 20 MG TABLET PO SCH (08:57)
[2022-03-28] MEDS: PANTOPRAZOLE 40 MG TABLET PO SCH (08:57)
[2022-03-28] MEDS: CARBOXYMETHYLCELLULOSE 1% OPH SOLN BOTH EYES SCH (08:58)
[2022-03-28] MEDS: methylPREDNISolone SOD SUC 40 MG/1 ML VIAL IV SCH (09:00)
[2022-03-28] MEDS: BUDESONIDE/FORMOTEROL 160-4.5 INHALER 6 GM INH SCH (09:03)
[2022-03-28] MEDS: [UNRECOGNIZED DRUG - MIXTURE] INH SCH (10:16)
[2022-03-28 10:53] VITALS: BP 123/53
[2022-03-31 16:31] LABS: Specimen Source SPUTUM
== END 2022-03-28 14:07 | DRG 193 ==
LOC: N.ED 09:42 → SUATTDRO 12:15 → N.EDINP 12:15 → N.3E 15:27
PROVIDERS: ADMIT Family Medicine; ATTEND Internal Medicine